=== PATIENT | male | born 1960 | race Caucasian/White ===

== ENCOUNTER 2020-03-21 03:19 | Outpatient (CLI) | payer OTHER, SELFPAY ==
[2020-03-22 20:36] LABS: COVID-19 RT-PCR Result NEGATIVE (Negative)
== END 2020-03-21 03:39 ==
PROVIDERS: PCP Family Medicine; Visit Provider Surgery
DX: Z01.818 Encounter for other preprocedural examination (principal)
CPT/HCPCS: U0003

== ENCOUNTER 2020-03-26 07:28 | Day surgery (SDC) | payer OTHER, SELFPAY ==
[2020-03-26] VITALS (9 sets, daily range): BP systolic 107–134; BP diastolic 62–73; PULSE 43–61; RESP 9–18; TEMP 36.2–36.6; O2SAT 93–99
--- NOTE | 2020-03-26 06:50 | W.PM.OP ---
Date of service: 03/26/20 Time of Service: : Operative Note Operative Note DATE OF PROCEDURE: 03/26/20 PRE-OP DIAGNOSIS: Left inguinal hernia POST-OP DIAGNOSIS: same (left direct and indirect inguinal hernia) PROCEDURE: left inguinal hernia repair with mesh SURGEON: Bhavani Fried HAZARD WASTE HANDLER: Martha Gonzales ANESTHESIA: MAC (ASA 2/ Rosmery Casas CRNA) and regional (Left TAP block) ESTIMATED BLOOD LOSS: 20 PATHOLOGY: none sent COMPLICATIONS: None Patient was transported to: PACU Patient's condition: stable Implants: BARD Mesh: LOT- [id number] REF- [id number] Indications: 59-year-old white male presents with complaints of left-sided inguinal pain that began while working 03/03/2020. States he was removing a 60 pound tabletops and was stacking them on a palate. Stack was becoming quite high when he lifted and turned and felt a sudden onset of left inguinal pain. Pain was moderate and sharp initially. Now pain is 4/10 and dull. Lifting and turning worsens pain. Sitting and resting improves pain. Occasional use of Aleve has helped as well. Initially he continued to work, but later began to feel increasing pain and a small bulge developed over his left inguinal area. Denies fevers or chills, N,V,D. Denies chest pain, shortness of breath, or dizziness. No bowel or bladder complaints. Denies blood in stool. Patient was seen by occupational health and referred for repair of his hernia. Findings: Small indirect hernia and medium sized direct hernia Procedure Description: After informed concent was obtained the patient was taken to the operating room and placed in a supine position. Monitors and SCDs were applied and a timeout was done. The patient's name, date of , procedure type, procedure site, allergies to medications, preoperative antibiotic, and DVT prophylaxis were all reviewed. Fire risk was assessed. Next anesthesia did a tap block on the left side under ultrasound guidance. Please see their separate dictation. Once anesthesia was done the abdomen was prepped and draped in a sterile surgical fashion. 1% lidocaine was injected into the dermis in the left lower quadrant. An incision was made with a 10 blade in the left lower quadrant. Dissection was done with cautery through the subcutaneous tissues and Richar's fascia down to the external oblique fascia. The external ring was identified and the external oblique fascia was opened sharply through the external ring. The cut fascia was grasped with hemostats the cord structures were identified and a [place] drain was placed around them. The ilioinguinal nerve was identified and transected. The cremasteric muscle was dissected away from the cord structures using both cautery and blunt dissection. A hernia sac was identified and removed from the cord structures using blunt dissection. The hernia sac reduced back into the peritoneum. There was also a small cord lipoma which was removed. A 6 x 6 piece of mesh was cut in half. One half was cut into thrids and a plug was created and secured with 2-0 proline interruted stitches. The other half was cut to size and attached to the lacunar ligament using a 2-0 Prolene double armed suture. The mesh was secured laterally and medially with a 2-0 Prolene, with a running suture. The tails of the mesh were wrapped around the cord structures effectively cinching down the internal ring. Once the mesh was secured the tissues were irrigated with some normal saline. No bleeding was identified. The external oblique fascia was re-approximated using 2-0 Vicryl running stitch. The Richar's fascia was re-approximated using interrupted 3-0 Vicryl interrupted stitches. The dermis was re-approximated with a running 4-0 Vicryl stitch. The skin was cleaned and dried and skin affix was applied. The patient was woken up and taken back to recovery in stable condition. There were no immediate complications. Sponge, instrument and needle counts were correct at the end of the case x2.
--- NOTE | 2020-03-26 06:52 | PDOC.DSDIS_ITS ---
Discharge Plan Disposition Patient Disposition: HOME Condition: Good Discharge Details Reason For Visit: Left inguinal hernia Attending Provider: Bhavani Fried Primary Care Provider: Larry Bacon Home Meds and New Rx's Prescriptions: Continued fluticasone propion-salmeterol [Advair Diskus] 500-50 mcg/dose blister with device 1 inh IH BID RF: 0 montelukast 10 mg tablet 10 mg PO DAILY RF: 0 lansoprazole 30 mg capsule,delayed release(DR/EC) 30 mg PO DAILY RF: 0 albuterol sulfate 90 mcg/actuation HFA aerosol inhaler 2 puff IH 6XD RF: 0 Discharge Instructions Instructions: Inguinal Hernia Repair (DC) Additional Instructions: Activity at Home after surgery: 1. Make sure you walk outside at least 4 times per day 2. You should be able to climb a flight of stairs 3. No driving while in pain or taking pain medications 4. No strenuous activity or heavy lifting for 2 weeks (laparoscopic surgery) or 4 weeks (open surgery) Diet, Nutrition, & wound healin. Avoid alcohol until after you are recovered from your surgery 2. Make sure to eat plenty of lean protein (meat, fish, eggs, cottage cheese, beans) 3. Eat a variety of fruits and vegetables. Eat plenty of high fiber foods to avoid constipation. 4. Drink plenty of liquids to stay hydrated and avoid constipation Pain Medications: 1. Tylenol 650 mg every 6 hours as needed and Ibuprofen 600 mg every 6 hours. may alternate between the 2 medications every 3 hours 2. If a narcotic has been prescribed take as directed only for breakthrough pain For Constipation: 1. Take Milk of Magnesia or MiraLax as needed for constipation Other: 1. You may shower daily. Do not scrub the incisions 2. Do not soak the incisions for 1 week 3. You may alternate ice and heat as needed for pain and swelling Wound Care: 1. Keep the incisions clean and dry Please call our office if you develop: 1. Fevers >101.5 2. Nausea or Vomiting 3. Worsening pain 4. Redness and thick discharge from the wounds If after hours please call the Hospital at and ask to speak to the on-call surgeon Referrals: Bhavani Fried MD [ [facility] STAFF PHYSICIAN] - Activity:: no lifting >20 lb Remove Dressings/Wound Care:: Do Not Remove Shower/Bathe:: 24 hours Diet:: As Tolerated Discharge Orders Discharge Orders: Discharge Order (Routine); Ordered 03/26/20 Ordered By: Bhavani Fried
[2020-03-26] MEDS: Lactated Ringers 1,000 ML 80 ML IV (08:15)
[2020-03-26] MEDS: Acetaminophen 500 MG TAB 1000 MG PO (08:19)
[2020-03-26] MEDS: Celecoxib 200 MG CAP PO (08:20)
[2020-03-26] MEDS: ceFAZolin 2 GM/50 ML BAG IVPB (09:23)
[2020-03-26] MEDS: Lidocaine 1% Multi-Dose 50 ML VIAL (09:32)
[2020-03-26] MEDS: Bupivacaine 0.25% Pres-Free 30 ML VIAL (10:20)
[2020-03-26] MEDS: Bupivacaine LIPOSOME/PF 133 MG/10 ML VIAL IJ (10:20)
[2020-03-26] MEDS: fentaNYL 100 MCG/2 ML VIAL IVP (11:00)
[2020-03-26] MEDS: oxyCODONE 5 MG TAB PO (12:04)
== END 2020-03-26 13:13 | disposition home or self-care (01) ==
PROVIDERS: PCP Family Medicine; Visit Provider Surgery
PROC: (CPT 49505; principal; 2020-03-26 08:15)
DX: K40.90 Unilateral inguinal hernia, without obstruction or gangrene, not specified as recurrent (principal)
CPT/HCPCS: 49505; 76942; C1781; J0690; J1885; J2001; J3010